=== PATIENT | male | born 2000 | race Hispanic/Latino ===

== ENCOUNTER 2020-10-06 15:44 | Emergency (ER) | payer SELFPAY ==
[~2020-10-06] VITALS: Ht 165.1 cm; Wt 80.0 kg
[2020-10-06] MEDS ORDERED: OFLOXACIN0.3 % OD (16:42)
[2020-10-06 17:00] VITALS: BP 139/85
== END 2020-10-06 17:00 | disposition home or self-care (01) | DRG 115 ==
LOC: ED 15:44
PROC: 08C8XZZ Extirpation of Matter from Right Cornea, External Approach (ICD-10-PCS; principal; 2020-10-06)
DX: T15.01XA Foreign body in cornea, right eye, initial encounter (principal); X58.XXXA Exposure to other specified factors, initial encounter